=== PATIENT | male | born 1970 | race Caucasian/White ===

== ENCOUNTER 2020-01-16 09:06 | Emergency (ER) | payer BC ==
[~2020-01-16] VITALS: Ht 175.3 cm; Wt 99.1 kg
[2020-01-16] MEDS ORDERED: NO HOME MEDS (09:27)
[2020-01-16] MEDS ORDERED: chlordiazePOXIDE 25mg capsule PO ONE ×2 (09:50→10:50)
[2020-01-16] MEDS ORDERED: CHLO25CA10 PO (10:16)
[2020-01-16] MEDS ORDERED: thiamine 100mg tablet PO ONE (10:50)
[2020-01-16] MEDS ORDERED: folic acid 1mg tablet PO ONE (10:50)
[2020-01-16 11:48] VITALS: BP 127/85
== END 2020-01-16 11:56 | disposition home or self-care (01) ==
LOC: ER 09:07
DX: F10.239 Alcohol dependence with withdrawal, unspecified (principal); R11.0 Nausea; F17.200 Nicotine dependence, unspecified, uncomplicated; Z98.890 Other specified postprocedural states; Z79.899 Other long term (current) drug therapy; Y90.0 Blood alcohol level of less than 20 mg/100 ml
CPT/HCPCS: 99284